=== PATIENT | female | born 1955 | race Caucasian/White ===

== ENCOUNTER 2018-07-07 12:58 | Inpatient (IN) | payer BC ==
[2018-07-07] MEDS ORDERED: Nitroglycerin 2% Ointment 1 INCH/1 GM Packet ONE (13:27)
[2018-07-07 13:30] LABS: #Basophils 0.1 thou/uL (0.0-0.2); #Lymphocytes 1.3 thou/uL (1.20-3.40); #Monocytes 0.4 thou/uL (0.11-0.59); #Neutrophils 4.1 thou/uL (1.40-6.50); %Basophils 1.2 % (0.0-1.0); %Eosinophils 0.6 % (0.0-10.0); %Lymphocytes 22.1 % (21.0-51.0); %Neutrophils 69.2 % (42.0-75.0); Hemoglobin 15.2 g/dL (12.0-16.0); Mean Corpuscular HGB CONC 33.1 g/dL (32.0-36.0); Mean Corpuscular Hemoglobin 30.3 pg (27.0-31.0); Mean Corpuscular Volume 91.6 fL (78.0-98.0); Mean Platelet Volume 8.2 fL (7.4-10.4); Platelet Count 243 thou/uL (130-400); RBC Distribution Width 11.6 % (11.5-14.5); Red Blood Cell (RBC) Count 5.01 mill/uL (4.20-5.40); White Blood Cell (WBC) Count 5.9 thou/uL (4.8-10.8)
[2018-07-07 13:41] LABS: ALT (SGPT) 25 U/L (8-55); AST (SGOT) 20 U/L (5-34); Albumin 4.8 g/dL (3.4-4.8); Alkaline Phosphatase 90 U/L (40-150); Anion Gap 15 mmol/L (10-20); BUN (Urea Nitrogen) 16 mg/dL (9.8-20.1); Bilirubin, Total 0.8 mg/dL (0.2-1.2); Calc. Creatinine Clearance 0 mL/min (70-130); Calcium 10.6 mg/dL (7.8-10.44); Carbon Dioxide 24 mmol/L (23-31); Chloride 106 mmol/L (98-107); Estimated GFR-MDRD 73; Globulin 2.9 g/dL (2.4-3.5); Glucose 95 mg/dL (80-115); Lipase 18 U/L (8-78); Potassium 3.4 mmol/L (3.5-5.1); Protein, Total 7.7 g/dL (6.0-8.3); Sodium 142 mmol/L (136-145)
--- NOTE | 2018-07-07 14:26 | RAD ---
CHEST 1 VIEW: Date: 07/07/18 HISTORY: Chest pain x1 hour. COMPARISON: 02/26/16 study. FINDINGS: Heart size and mediastinum are within normal limits. Lungs are clear of infiltrates. No bony findings . IMPRESSION: No active intrathoracic disease. POS: [facility]
[2018-07-07] MEDS ORDERED: Acetaminophen 500 MG TAB ONE (15:04)
[2018-07-07 16:35] LABS: Troponin I Less than 0.010 ng/mL (< 0.028)
[2018-07-07 18:33] VITALS: BMI 25.2
[2018-07-07] MEDS ORDERED: ZOLPIDEM TARTRATE 6.25 MG PO PRN (18:35)
[2018-07-07] MEDS ORDERED: Nitroglycerin 4.9 GM Bottle SL PRN (18:35)
[2018-07-07] MEDS ORDERED: Zolpidem Tartrate 5 MG TAB PO PRN (18:46)
[2018-07-07] MEDS ORDERED: Atorvastatin Calcium 20 MG TAB PO SCH (21:00)
[2018-07-07 21:15] LABS: Troponin I Less than 0.010 ng/mL (< 0.028)
[2018-07-07] MEDS ORDERED: Ibuprofen 600 MG TAB PO PRN (21:43)
[2018-07-07] MEDS ORDERED: Nitroglycerin 2% Ointment 1 INCH/1 GM Packet TOP SCH (23:59)
[2018-07-08] MEDS ORDERED: lamoTRIgine 100 MG TAB PO SCH (09:00)
[2018-07-08] MEDS ORDERED: Aspirin 81 mg Enteric Coated Tablet PO SCH (09:00)
[2018-07-08] MEDS: ALPRAZolam 0.25 MG TAB PO PRN ×2 (10:13→21:07)
--- NOTE | 2018-07-08 12:45 | HP ---
CHIEF COMPLAINT: Chest pain. HISTORY OF PRESENT ILLNESS: This is a 62-year-old female patient with a history of coronary vasospasms in the past, who presented to the Emergency Department with sudden onset of chest pain with associated nausea, vomiting, and shortness of breath. She states that she had been in her usual state of health, actually exercised this weekend without any chest pain or any symptoms. She has been under increased undue stress over the past few weeks, taking care of her mother in [place] with both her mother and sister with mental illness. She had similar episodes of this back in 2016, which may have been triggered by undue stress at that time as well. In January 2016, she had a clear cardiac catheterization by Dr. Sandoval. In the Emergency Department, she did have similar EKG changes from the past with ST depressions in the lateral leads and nonspecific ST elevations in other leads, that she ruled out for an CA with normal cardiac enzymes. Emergency physician felt like it would be best to admit her and have her see the urology physician. It was discussed with Dr. Ceja on-call and agreed with nitroglycerin therapy due to the history of coronary angiospasm and monitoring. She is feeling much better this morning. She still has some chest pressure, but not the pain as before and had significant relief with nitroglycerin. PAST MEDICAL HISTORY: History of hypertension, anxiety, insomnia, and postconcussive syndrome. PAST SURGICAL HISTORY: x2 and cardiac catheterization in January of 2016. MEDICATIONS: 1. Lamictal 150 mg daily. 2. Ambien extended release 6.25 mg p.r.n. sleep. 3. Lipitor 20 mg daily. 4. Diltiazem 120 mg daily. 5. Motrin p.r.n. pain. ALLERGIES: NONE KNOWN. FAMILY HISTORY: Mom with mental illness. No heart disease. No diabetes. SOCIAL HISTORY: She is with children. Lives at home. Continues to work. Positive alcohol. No smoking. No other illicit drug use. REVIEW OF SYSTEMS: As per the history of present illness. GENERAL: She denies any recent fevers, chills, or recent illness. HEENT: Some headaches. No visual or hearing changes. No recent upper respiratory symptoms. CARDIAC: As per the history of present illness. No palpitations. PULMONARY: No cough or hemoptysis. GI: Some nausea. No vomiting or diarrhea. : No dysuria or hematuria. NEUROLOGIC: No weakness, seizures, or syncope. PHYSICAL EXAMINATION: VITAL SIGNS: Temperature 99.0, pulse is 70 and regular, respirations 16, blood pressure 134/71, and pulse ox 97% on room air. GENERAL: She is awake and alert, in no acute distress. Speech is clear. Mucosa is moist. NECK: Supple. No JVD, adenopathy, or bruits. HEART: Regular rate and rhythm without murmurs. LUNGS: Clear bilaterally. ABDOMEN: Soft. EXTREMITIES: No clubbing, cyanosis, or edema. 2+ peripheral pulses bilaterally. LABORATORY DATA: White blood cell count 5.9, hemoglobin and hematocrit 15.2 and 45.9, and platelets of 243. Sodium 142, potassium 3.4, chloride 106, CO2 of 24, BUN and creatinine 16 and 0.8, glucose of 95, and calcium of 10.6. Troponin I's negative x3 less than 0.01. EKG again revealed abnormalities with ST depressions in lateral leads. Chest x-ray shows no active disease. ASSESSMENT AND PLAN: 1. This is a 62-year-old female patient with a history of coronary spasm, now admitted with new onset chest pain. I will continue nitroglycerin as nitroglycerin paste and consider oral nitroglycerin if her pain persists. 2. Chest pain. Cardiology to evaluate possible repeat stress test. 3. Hypertension. We will continue calcium channel echo. 4. Anxiety and depression. I will continue Lamictal and Ambien at night. We will start Xanax p.r.n. anxiety. 5. Disposition. If no need for further risk stratification, possible discharge home after Cardiology evaluation. Job ID: [id number]
[2018-07-08 20:02] VITALS: BP 140/68; TEMP 97.9
--- NOTE | 2018-07-08 20:16 | CON ---
DATE OF CONSULTATION: 07/08/2018 INDICATION FOR CONSULTATION: A 62-year-old female with history of coronary artery vasospasms, who presented again with chest pain. HISTORY OF PRESENT ILLNESS: This very pleasant 62-year-old female, who has been followed by Dr. Sandoval in the past for coronary vasospasms. She underwent a cardiac catheterization in 2016, which showed normal coronary arteries. At that time in 2016, when she presented, she did have a significant chest pain and the EKG changes compatible what appeared to be ischemia. She had ST-segment depression in the anterior and lateral leads and has been doing relatively well. She has seen Dr. Sandoval approximately a year ago. She then recently has been under increased stress due to problems with her mother and presented yesterday after she started having more chest discomfort while sitting at her desk around noontime. It first started as twinges and then increased, since she presented to the emergency room. She also was somewhat short of breath and mildly diaphoretic with the episode. She was transferred to [facility] for [facility] evaluation. Cardiac enzymes have remained negative. EKG has improved. She has been given nitroglycerin. She is continued on her other medications. She is on amlodipine. At this time, she is pain free. She did say she had a couple of twinges, but no significant chest discomfort and otherwise has been doing quite well. PAST MEDICAL HISTORY: Significant for the coronary artery vasospasms, hypertension, and anxiety. She has had a history of a head injury in the past and postconcussion syndrome and she has insomnia. She has had a . MEDICATIONS: Prior to admission included previously p.r.n. nitroglycerin. She has not had any more nitroglycerin. She needs to get a refill and I have written her prescription for the refill today. Her other medicines include; 1. P.R.N. doxycycline. 2. Lamotrigine. 3. Amlodipine 2.5 mg a day. ALLERGIES: NONE. FAMILY HISTORY: Noncontributory. Her mother has mental illness, but no significant other medical problems from a cardiac standpoint. SOCIAL HISTORY: She is . She works. She has no alcohol or tobacco abuse. She has some occasional alcohol, but no tobacco abuse. REVIEW OF SYSTEMS: A 12-point review of systems unremarkable except as noted in the history of present illness. PHYSICAL EXAMINATION: GENERAL: Reveals a very pleasant, well-developed, well-nourished female, who is in no acute distress. She is alert and oriented. VITAL SIGNS: Her blood pressure is 139/69. She is afebrile. Heart rate is 84 and regular, respiratory rate 16, and O2 saturation 93%. HEENT: Shows the head to be normocephalic and atraumatic. Carotid pulses are present. There were no bruits. CHEST: Clear to auscultation without rales, rhonchi, or wheezing. CARDIOVASCULAR: Reveals a regular rate and rhythm. Normal S1 and S2. There is no S3 or S4. There were no significant murmurs, heaves, thrills, bruits, or rubs. ABDOMEN: Soft and nontender. Positive bowel sounds are present. No organomegaly or masses are noted. Femoral pulses are present. EXTREMITIES: Showed no clubbing, cyanosis, or edema. NEUROLOGIC: The patient appears to be intact. She has no evidence of focal motor deficits. SKIN: Warm and dry. LABORATORY DATA: As noted above, her cardiac enzymes are negative. No evidence of myocardial infarction. Her calcium level was high at 10.6, potassium is 3.4, sodium 142, and her creatinine is 0.8. WBC was 5.9 with a hemoglobin 15.2 and a platelet count of 243,000. IMPRESSION AND PLAN: 1. Coronary vasospasm with episode uncertain of why this is probably from her stress or fatigue. She does not have any history of tobacco abuse. I have written her prescription for nitroglycerin for her to take at home should this occur again. 2. History of anxiety. She will continue following up with Dr. Dinero for this diagnosis. She also has a history of some hypertension in the past. We will continue on the [facility]. This seems to be controlling her blood pressure quite nicely. At this time, from a cardiac standpoint, she appears to be stable for discharge and no further cardiac workup is indicated at this time. I have advised her that she should follow with Dr. Sandoval in the next 1 to 2 months in the office and then to have her nitroglycerin available should she have further episodes of chest discomfort and also continue to take the baby aspirin. Job ID: [id number]
== END 2018-07-08 21:19 | disposition home or self-care (01) | DRG 311 ==
LOC: SCSER 12:58 → 2SE 18:19
PROVIDERS: ADMIT Family Medicine; ATTEND Family Medicine
DX: I20.1 Angina pectoris with documented spasm (principal); I10 Essential (primary) hypertension; F41.9 Anxiety disorder, unspecified; F32.9 Major depressive disorder, single episode, unspecified
CPT/HCPCS: 36415; 36416; 71045; 80053; 83690; 84484; 85025; 93005

== ENCOUNTER 2018-07-15 15:42 | Outpatient (CLI) | payer BC | END 2018-07-15 15:43 | disposition home or self-care (01) | LOC: CTENTCT 15:42 | PROVIDERS: ATTEND Otolaryngology Plastic Surgery within the Head & Neck | DX: J32.9 Chronic sinusitis, unspecified (principal) | CPT/HCPCS: 70486 ==

== ENCOUNTER 2018-09-15 08:34 | Outpatient (CLI) | payer BC ==
--- NOTE | 2018-09-15 10:05 | RAD ---
PA AND LATERAL CHEST: HISTORY: Dyspnea. COMPARISON: 07/07/2018 study. FINDINGS: Heart size and mediastinum are within normal limits. The lungs appear clear of any infiltrative proc ess. There are some arthritic changes of the spine. IMPRESSION: No active intrathoracic disease. Stable chest. POS: [facility]
== END 2018-09-15 08:35 | disposition home or self-care (01) ==
LOC: RAD 08:34
PROVIDERS: ATTEND Internal Medicine Critical Care Medicine
DX: R06.00 Dyspnea, unspecified (principal)
CPT/HCPCS: 71046

== ENCOUNTER 2020-01-22 12:00 | Outpatient (CLI) | payer BC ==
--- NOTE | 2020-01-22 14:45 | MMO ---
Bilateral MAMMO Bilat Screen [facility]. CLINICAL HISTORY: Patient is 64 years old and is seen for screening. The patient has the following family history of breast cancer: maternal grandmother, at age 68. The patient has no personal history of cancer. VIEWS: The views performed were: bilateral craniocaudal with tomosynthesis; bilateral mediolateral oblique with tomosynthesis; and cleavage view. FILMS COMPARED: The present examination has been compared to prior imaging studies performed at [facility] on 07/13/2011, 08/27/2014, 10/03/2015 and 02/25/2017. This study has been interpreted with the assistance of computer-aided detection. MAMMOGRAM FINDINGS: There are scattered fibroglandular densities. There are no suspicious masses, suspicious calcifications, or new areas of architectural distortion. IMPRESSION: THERE IS NO MAMMOGRAPHIC EVIDENCE OF MALIGNANCY. A ROUTINE FOLLOW-UP MAMMOGRAM IN 1 YEAR IS RECOMMENDED. THE RESULTS OF THIS EXAM WERE SENT TO THE PATIENT. ACR BI-RADS Category 1 - Negative MAMMOGRAPHY NOTE: 1. A negative mammogram report should not delay a biopsy if a dominant of clinically suspicious mass is present. 2. Approximately 10% to 15% of breast cancers are not detected by mammography. 3. Adenosis and dense breasts may obscure an underlying neoplasm. Reported by: CECI HUDSON MD Electonically Signed: [id number]
== END 2020-01-22 12:01 | disposition home or self-care (01) ==
LOC: BICMAMMO 12:00
PROVIDERS: ATTEND Obstetrics & Gynecology
DX: Z12.31 Encounter for screening mammogram for malignant neoplasm of breast (principal); Z80.3 Family history of malignant neoplasm of breast
CPT/HCPCS: 77063; 77067